=== PATIENT | male | born 1955 ===

== ENCOUNTER 2018-04-04 09:14 | Emergency (ER) | payer OTHER ==
[2018-04-04 09:16] VITALS: BMI 25.8
[2018-04-04] MEDS ORDERED: TDAP Vaccine 0.5 mL Syr IM ONE (09:59)
--- NOTE | 2018-04-04 10:15 | ED PDOC ---
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 Patient reports, around 9pm, he was putting on a shoe when he noticed a fish hook punctured into the under surface of his toe. Patient reports he was able to pull out the hook by himself and came into emergency department requesting antibiotics. Patient notes he does not remember his last tetanus shot and denies any skin changes or redness to area affected just pin prick keiry. Patient also notes he has no difficulty ambulating. Patient denies any fever, chills, shortness of breath, chest pain, diarrhea, nausea, vomiting , urinary symptoms, back pain, neck pain, headache, dizziness, or any other complaints. Time/Duration: Other (last night) Symptom Onset: Sudden Symptom Course: Unchanged Activities at Onset: Light Context: Home Past Medical History - Provider Review Nursing Documentation Reviewed: Yes - Infectious Disease Hx of Infectious Diseases: None - Cardiac Hx Cardiac Disorders: No Hx Hypertension: Yes - Pulmonary Hx Respiratory Disorders: No - Neurological Hx Neurological Disorder: No - HEENT Hx HEENT Disorder: No - Renal Hx Renal Disorder: No - Endocrine/Metabolic Hx Diabetes Mellitus Type 2: Yes - Hematological/Oncological Hx Blood Disorders: No - Integumentary Hx Dermatological Disorder: No - Musculoskeletal/Rheumatological Hx Musculoskeletal Disorders: No - Gastrointestinal Hx Gastrointestinal Disorders: No - Genitourinary/Gynecological Hx Genitourinary Disorders: No - Psychiatric Hx Psychophysiologic Disorder: No Hx Substance Use: No - Anesthesia Hx Anesthesia: No Hx Anesthesia Reactions: No Hx Malignant Hyperthermia: No Family/Social History - Physician Review Nursing Documentation Reviewed: Yes Family/Social History: Unknown Family HX Smoking Status: Never Smoked Hx Alcohol Use: No Hx Substance Use: No Allergies/Home Meds Allergies/Adverse Reactions: Allergies No Known Allergies Allergy (Verified 07/16/16 17:47) Review of Systems - Physician Review All systems were reviewed & negative as marked: Yes - Review of Systems Constitutional: absent: Fevers, Night Sweats Respiratory: absent: SOB Cardiovascular: absent: Chest Pain Gastrointestinal: absent: Diarrhea, Nausea, Vomiting Genitourinary Male: absent: Urinary Output Changes Musculoskeletal: absent: Back Pain, Neck Pain Skin: absent: Other (+injury on right big toe, no redness skin changes to area affected ) Neurological: absent: Headache, Dizziness Physical Exam Vital Signs Reviewed: Yes Vital Signs Temp Pulse Resp BP Pulse Ox 04/04/18 12:25 98.0 F 76 18 98 04/04/18 11:53 98.1 F 72 18 130/78 99 04/04/18 09:27 98.3 F 70 16 136/71 98 Temperature: Afebrile Blood Pressure: Normal Pulse: Regular Respiratory Rate: Normal Appearance: Positive for: Well-Appearing, Non-Toxic, Comfortable Pain Distress: None Mental Status: Positive for: Alert and Oriented X 3 - Systems Exam Head: Present: Atraumatic, Normocephalic Pupils: Present: PERRL Extroacular Muscles: Present: EOMI Conjunctiva: Present: Normal Mouth: Present: Moist Mucous Membranes Neck: Present: Normal Range of Motion Respiratory/Chest: Present: Clear to Auscultation, Good Air Exchange. No: Respiratory Distress, Accessory Muscle Use Cardiovascular: Present: Regular Rate and Rhythm, Normal S1, S2. No: Murmurs Abdomen: No: Tenderness, Distention, Peritoneal Signs Back: Present: Normal Inspection Upper Extremity: Present: Normal Inspection. No: Cyanosis, Edema Lower Extremity: Present: NORMAL PULSES, Normal ROM, Tenderness (+mild tenderness to palpation), Neurovascularly Intact, Other (+single puncture keiry to underside of R big toe center; no crepitus or streaking). No: Normal Inspection (probing did not yield superficial wound), Edema, CALF TENDERNESS, Cyanosis, Jesus's Sign, Swelling, Erythema, Deformity, Temperature Abnormalties , Capillary Refill < 2 s Neurological: Present: GCS=15, CN II-XII Intact, Speech Normal Skin: Present: Warm, Dry, Normal Color. No: Rashes Psychiatric: Present: Alert, Oriented x 3, Normal Insight, Normal Concentration Medical Decision Making ED Course and Treatment: 04/04/18 10:24 Impression: 62 year old male presenting to the emergency department s/p fish hook in right big toe. ?retained foreign body, will xr. Given hx of dm2, and pt w/ puncture in show will likely cover for pseudomonas. Plan: -- Boostrix Vaccine -- Xray of Right foot great toe -- Reassess and disposition Prior Visits: Notes and results from previous visits were reviewed. Progress Notes: 04/04/18 12:18 Dictator: Poli Perry MD Procedure: Right foor radiographs Impression: Normal right foot radiographs No retained FB. Given stable N/V status, will cover for pseudomonas and DM2 associated food infections. NKDA. - RAD Interpretation Radiology Orders: 04/04/18 09:58 FOOT RIGHT GREAT TOE ROUTINE [RAD] Stat - Medication Orders Current Medication Orders: Discontinued Medications Tetanus/Reduced Diphtheria/Acell Pertussis (Boostrix Vaccine Inj) 0.5 ml IM .ONCE ONE Stop: 04/04/18 10:00 Last Admin: 04/04/18 10:18 Dose: 0.5 ml MAR Immunization Data Document 04/04/18 10:18 [email or web address] (Rec: 04/04/18 10:18 [email or web address] [id number]) Immunization Data Vaccine Information Sheet Given No Immunization Registry Document 04/04/18 10:18 [email or web address] (Rec: 04/04/18 10:18 [email or web address] [id number]) Immunization Registry Consent Date 12/21/17 - Scribe Statement The provider has reviewed the documentation as recorded by the Annalee Clark All medical record entries made by the Scribe were at my direction and personally dictated by me. I have reviewed the chart and agree that the record accurately reflects my personal performance of the history, physical exam, medical decision making, and the department course for this patient. I have also personally directed, reviewed, and agree with the discharge instructions and disposition. Disposition/Present on Arrival - Present on Arrival Any Indicators Present on Arrival: No History of DVT/PE: No History of Uncontrolled Diabetes: No Urinary Catheter: No History of Decub. Ulcer: No History Surgical Site Infection Following: None - Disposition Have Diagnosis and Disposition been Completed?: Yes Diagnosis: Foot infection, Diabetic foot infection, Fish hook injury of right lower leg Disposition: HOME/ ROUTINE Disposition Time: 11:45 Condition: GOOD Discharge Instructions (ExitCare): Wound Infection Additional Instructions: MARY OTTO, thank you for letting us take care of you today. Your provider was Liban Barone and you were treated for RIGHT FOOT PAIN. The emergency medical care you received today was directed at your acute symptoms. If you were prescribed any medication, please fill it and take as directed. It may take several days for your symptoms to resolve. Return to the Emergency Department if your symptoms worsen, do not improve, or if you have any other problems. Please contact your doctor or call one of the physicians/clinics you have been referred to that are listed on the Patient Visit Information form that is included in your discharge packet. Bring any paperwork you were given at discharge with you along with any medications you are taking to your follow up visit. Our treatment cannot replace ongoing medical care by a primary care provider outside of the emergency department. Thank you for allowing the [facility] team to be part of your care today. If you had an X-Ray or CT scan: A Radiologist will review the ED reading if any change in treatment is needed we will contact you. If you had a blood, urine, or wound culture: It will take several days for the results, if any change in treatment is needed we will contact you. If you had an STI test: It will take 48 hours for the results. Please call after 1 week if you have not heard back. Prescriptions: Ciprofloxacin 750 mg PO Q12H 14 Days #28 ml Clindamycin [Cleocin] 450 mg PO Q8H 14 Days #42 cap Referrals: Carmen Knutson MD [Medical Doctor] - Follow up with primary Forms: [employer] (Jordanian)
[2018-04-04 11:54] VITALS: BP 130/78; RESP 18
--- NOTE | 2018-04-04 12:13 | RAD ---
Date of service: 04/04/2018 PROCEDURE: Right Foot Radiographs. HISTORY: stepped on fishhook, hx of dm. ?retained FB? COMPARISON: None. FINDINGS: BONES: Normal. No fracture. JOINTS: Normal. SOFT TISSUES: Normal. OTHER FINDINGS: None. IMPRESSION: Normal right foot radiographs.
[2018-04-04 12:25] VITALS: PULSE 76; TEMP 98; O2SAT 98
== END 2018-04-04 12:25 | disposition home or self-care (01) ==
LOC: ED 09:14
DX: S89.91XA Unspecified injury of right lower leg, initial encounter (principal); X58.XXXA Exposure to other specified factors, initial encounter; L08.9 Local infection of the skin and subcutaneous tissue, unspecified; E11.628 Type 2 diabetes mellitus with other skin complications; E78.5 Hyperlipidemia, unspecified; I10 Essential (primary) hypertension; Z23 Encounter for immunization